=== PATIENT | male | born 1930 | race Caucasian/White ===

== ENCOUNTER 2020-03-23 18:06 | Emergency (ER) | payer MEDICARE ==
[~2020-03-23] VITALS: Ht 175.3 cm; Wt 83.5 kg
[2020-03-23] MEDS ORDERED: TETANUS/DIPHTHERIA TOX ADULT 0.5 ML SYR IM ONE (18:45)
[2020-03-23] MEDS ORDERED: TETANUS/DIPHTHERIA TOX ADULT 0.5 ML SYR ONE (18:53)
[2020-03-23 20:13] VITALS: BP 154/69
== END 2020-03-23 20:13 | disposition home or self-care (01) ==
LOC: FSED 18:45
DX: S00.411A Abrasion of right ear, initial encounter (principal); M79.604 Pain in right leg; W01.198A Fall on same level from slipping, tripping and stumbling with subsequent striking against other object, initial encounter; Y93.01 Activity, walking, marching and hiking; Y92.008 Other place in unspecified non-institutional (private) residence as the place of occurrence of the external cause; I10 Essential (primary) hypertension
CPT/HCPCS: 90714; 99283